=== PATIENT | male | born 1985 | race Hispanic/Latino ===

== ENCOUNTER 2017-03-04 11:17 | Emergency (ER) | payer SELFPAY ==
[~2017-03-04] VITALS: Ht 172.7 cm; Wt 104.5 kg
[2017-03-04 11:24] VITALS: BP 119/61; PULSE 71; RESP 16; O2SAT 99
[2017-03-04] MEDS ORDERED: TdaP Vaccine 0.5 mL Inj IM ONE ×2 (11:30→12:35)
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
[2017-03-04] MEDS ORDERED: HYDROcodone-APAP 5-325 mg Tablet PO ONE (12:35)
[2017-03-04 13:07] LABS: BASOPHILS % (AUTO) 0.3 % (0-3); EOSINOPHILS % (AUTO) 6.3 % (0-5); MONOCYTES % (AUTO) 9.9 % (4-12); Mean Corpuscular Hemoglobin 29.9 pg (27.0-35.0); Mean Corpuscular Volume 89.7 fL (81-100); NEUTROPHILS % (AUTO) 58.6 % (40-74); Platelet Count 193 bil/L (150-400)
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
[2017-03-04 15:12] VITALS: BP 116/46; PULSE 68; O2SAT 100
== END 2017-03-04 15:14 | disposition home or self-care (01) ==
LOC: SED 11:17
DX: S32.058A Other fracture of fifth lumbar vertebra, initial encounter for closed fracture (principal); S00.81XA Abrasion of other part of head, initial encounter; S00.83XA Contusion of other part of head, initial encounter; S70.01XA Contusion of right hip, initial encounter; V86.59XA Driver of other special all-terrain or other off-road motor vehicle injured in nontraffic accident, initial encounter; Y93.89 Activity, other specified; Y92.9 Unspecified place or not applicable; Y99.8 Other external cause status; Z87.891 Personal history of nicotine dependence; Z23 Encounter for immunization
CPT/HCPCS: 36415; 72125; 73522; 74177; 80053; 81002; 85025; 90471; 90715; 99284; Q9967